=== PATIENT | female | born 1950 | race Caucasian/White ===

== ENCOUNTER 2021-06-10 08:20 | Outpatient (CLI) | payer OTHER ==
[~2021-06-10 08:20] MED LIST: AMBIEN10 MG PO; CLONAZEPAM0.5 MG PO; MICROZIDE12.5 MG PO
== END 2021-06-10 08:25 | disposition home or self-care (01) ==
LOC: RX STUDY 08:20
DX: K22.8 Other specified diseases of esophagus (principal); R05 Cough